=== PATIENT | female | born 1970 | race Caucasian/White ===

== ENCOUNTER 2016-08-12 10:30 | Emergency (ER) | payer MEDICARE, MEDICAID ==
[2016-08-12 10:37] VITALS: BP 121/87
[2016-08-12] MEDS ORDERED: Cephalexin 500 MG Cap PO ONE (11:01)
[2016-08-12] MEDS ORDERED: Acetaminophen/HYDROcodone 325-5 MG Tab PO ONE (11:01)
[2016-08-12] MEDS ORDERED: Doxycycline 100 MG Cap PO ONE (11:08)
--- NOTE | 2016-08-12 11:09 | EDM.PDOC ---
ED HPI Trauma - General Chief Complaint: Lower Extremity Injury/Pain Stated Complaint: INFECTED TOE Time Seen by Provider: 08/12/16 10:58 Source: Reports: Patient History Limitations: Reports: No limitations - History of Present Illness INITIAL COMMENTS - FREE TEXT/NARRATIVE: Patient is a 46-year-old female who presents to the ED complaining of pain to the right great toe. States she has an ingrown toenail and has an appointment with car pilot at 2:30 this afternoon. States she's taken ibuprofen and Toradol with no relief. She's been walking with increased pain noted. Denies chronic infections to her toenail. She has not been on antibiotics recently. Pain is moderate to severe with weightbearing. Allergies/ADRs: Allergies Sulfa (Sulfonamide Antibiotics) Allergy (Verified 08/12/16 10:37) Rash Home Medications: Ambulatory Orders FLUoxetine [PROzac] 20 mg PO DAILY 02/21/15 [Confirmed 08/12/16] QUEtiapine [SEROquel XR] 300 mg PO BEDTIME 02/21/15 [Confirmed 08/12/16] ALPRAZolam [Xanax] 1 mg PO DAILY PRN 08/12/16 [Confirmed 08/12/16] Doxycycline [Vibramycin] 100 mg PO Q12HR #20 cap 08/12/16 cloNIDine [Catapres] 0.1 mg PO TID 08/12/16 [Confirmed 08/12/16] Social & Family History - Tobacco Use Smoking Status *Q: Current Every Day Smoker Years of Tobacco use: 17 Packs/Tins Daily: 0.5 Second Hand Smoke Exposure: No - Recreational Drug Use Recreational Drug Use: No Review of Systems - Review of Systems Review Of Systems: See Below Constitutional: Denies: chills, fever Musculoskeletal: Reports: other (Right great toe pain) Skin: Reports: erythema (Right great toe) Neurological: Reports: Difficulty Walking (Secondary to right great toe pain) Trauma Exam - Physical Exam Exam: See Below Exam Limited By: No limitations General Appearance: Reports: alert, WD/WN, no apparent distress Ears: Reports: hearing grossly normal Nose: Reports: normal inspection Throat/Mouth: Reports: Normal voice, No airway compromise Neck: Reports: other (supple) Respiratory Exam: Reports: no respiratory distress, no accessory muscle use Cardiovascular: Reports: normal peripheral pulses, regular rate, rhythm, no edema Extremities: Reports: other (right great toe has infected ingrown nail to the medial aspect. mild redness and swelling present. no increased warmth noted. localized. ) Neurologic: Reports: no motor/sensory deficits, alert, normal mood/affect, oriented x 3 Skin: Reports: Normal color, Warm/dry Course - Vital Signs Last Recorded V/S: Last Vital Signs Temp 97.5 F 08/12/16 10:35 Pulse 72 08/12/16 10:35 Resp 18 08/12/16 10:35 BP 121/87 08/12/16 10:35 Pulse Ox 97 08/12/16 10:35 - Orders/Labs/Meds Orders: Active Orders 24 hr Category Date Time Status DME for Discharge [COMM] Stat Oth 08/12/16 11:06 Ordered Meds: Medications Discontinued Medications Generic Name Dose Route Start Last Admin Trade Name Freq PRN Reason Stop Dose Admin Hydrocodone Bitart/Acetaminophen 1 tab 08/12/16 11:01 08/12/16 11:13 [place] 325-5 Mg PO 08/12/16 11:02 1 tab ONETIME ONE Administration Cephalexin 500 mg 08/12/16 11:01 Keflex PO 08/12/16 11:02 ONETIME ONE Doxycycline Hyclate 100 mg 08/12/16 11:08 08/12/16 11:13 Vibramycin PO 08/12/16 11:09 100 mg ONETIME ONE Administration - Re-Assessments/Exams Free Text/Narrative Re-Assessment/Exam: Examination elicited infected right great toe 2nd to ingrown nail. Has appointment with car pilot today at 1430. Patient is here for pain therapy. Ordered [place] 5/325 one tab by mouth and doxycycline 100 mg times one by mouth. She requests crutches so that she can be nonweightbearing secondary to pain. Discharge instructions as documented. 08/12/16 11:03 08/12/16 18:39 Spoke with the patient. She prescription was not transmitted to [facility] upon discharge in error. This has been completed. Departure - Departure Time of Disposition: 11:05 Disposition: Home, Self-Care 01 Condition: good Clinical Impression: Ingrowing toenail with infection Prescriptions: Doxycycline [Vibramycin] 100 mg PO Q12HR #20 cap Instructions: Ingrown Toenail Referrals: PCP,Not In Area [Primary Care Provider] - Forms: ED Department Discharge Additional Instructions: Keep appointment with car pilot as scheduled for today. You were administered a narcotic pain medication while in the ED. No driving today is required. Utilize crutches as instructed. Elevate affected extremity to reduce swelling and pain. Utilize Tylenol and ibuprofen in alternating fashion for pain. Take doxycycline 100 mg twice a day for 10 days. Return as needed for worsening symptoms. Discuss with car pilot for further pain therapies. - My Orders Last 24 Hours: My Active Orders 08/12/16 11:06 DME for Discharge [COMM] Stat - Assessment/Plan Last 24 Hours: My Active Orders 08/12/16 11:06 DME for Discharge [COMM] Stat
== END 2016-08-12 11:30 | disposition home or self-care (01) ==
LOC: JD.ED 10:30
DX: L60.0 Ingrowing nail (principal); F17.210 Nicotine dependence, cigarettes, uncomplicated; Z88.2 Allergy status to sulfonamides; Z79.899 Other long term (current) drug therapy
CPT/HCPCS: 99283; A9270

== ENCOUNTER 2016-09-02 19:38 | Emergency (ER) | payer MEDICARE, MEDICAID ==
[2016-09-02] MEDS ORDERED: Sodium Chloride 0.9% 10 ML Syringe FLUSH PRN (19:56)
[2016-09-02] MEDS ORDERED: Sodium Chloride 0.9% 1,000 ML IV SCH (20:00)
--- NOTE | 2016-09-02 20:23 | EDM.PDOC ---
ED HPI GENERAL MEDICAL PROBLEM - General Chief Complaint: Behavioral/Psych Stated Complaint: [facility] Time Seen by Provider: 09/02/16 19:44 Source of Information: Reports: Patient History Limitations: Reports: No Limitations - History of Present Illness INITIAL COMMENTS - FREE TEXT/NARRATIVE: The patient presents by ambulance for suicidal ideation. She has a history of substance and drug addiction. She mostly abused prescription pain meds in the past. She had some trouble with prescription meds again a few months ago and she came to [place] to live with her daughter and get away from it. Her daughter does not drink an she is helping her with her medications. The patient has been seeing a counselor [facility] at [facility]. The patient has been feeling more depressed lately and drank 1/2 liter of vodka today. She wants to be and for life to end. She does not have a plan. She used to be a cutter. Her mother and father both of drug overdoses at a young age of 46 and 52. She denies using any street drugs. The patient did call [facility]'s crisis line. Onset: Gradual Duration: Day(s): Severity: Severe Improves with: Reports: None Worsens with: Reports: None Associated Symptoms: Reports: No Other Symptoms Treatments CORRECTIONAL CAPTAIN: Reports: Other (see below) Other Treatments CORRECTIONAL CAPTAIN: See triage note Lower Back Pain Score (Numeric/FACES): 7 - Related Data Allergies Allergy/AdvReac Type Severity Reaction Status Date / Time Sulfa (Sulfonamide Allergy Rash Verified 08/12/16 10:37 Antibiotics) sulfamethoxazole Allergy Hives Verified 09/02/16 19:47 [From Bactrim] trimethoprim [From Bactrim] Allergy Hives Verified 09/02/16 19:47 Home Meds: Home Meds FLUoxetine [PROzac] 60 mg PO DAILY 02/21/15 [History] QUEtiapine [SEROquel XR] 300 mg PO BEDTIME 02/21/15 [History] cloNIDine [Catapres] 0.1 mg PO TID 08/12/16 [History] ClonazePAM [KlonoPIN] 1 mg PO TID 09/02/16 [History] Past Medical History - Past Health History Medical/Surgical History: Denies Medical/Surgical History Cardiovascular History: Reports: Hypertension Musculoskeletal History: Reports: Back Pain, Chronic Psychiatric History: Reports: Anxiety, Depression, Suicide Attempt, Suicidal Ideation - Past Surgical History GI Surgical History: Reports: Cholecystectomy Female Surgical History: Reports: Hysterectomy Social & Family History - Family History Family Medical History: Noncontributory - Tobacco Use Smoking Status *Q: Unknown Ever Smoked Years of Tobacco use: 17 Packs/Tins Daily: 0.5 Second Hand Smoke Exposure: No - Caffeine Use Caffeine Use: Reports: None - Alcohol Use Number of Drinks Per Day: 10 - Recreational Drug Use Recreational Drug Use: Yes Recreational Drug Type: Reports: Benzodiazepines, Xanax ED ROS GENERAL - Review of Systems Review Of Systems: See Below Constitutional: Reports: No Symptoms HEENT: Reports: No Symptoms Respiratory: Reports: No Symptoms Cardiovascular: Reports: No Symptoms Endocrine: Reports: No Symptoms GI/Abdominal: Reports: No Symptoms : Reports: No Symptoms Musculoskeletal: Reports: No Symptoms Skin: Reports: No Symptoms Neurological: Reports: No Symptoms Psychiatric: Reports: Depression, Suicidal Ideation ED EXAM, BEHAVIORAL HEALTH - Physical Exam Exam: See Below Exam Limited By: Intoxication General Appearance: Alert, Other (Tearfull) Ears: Normal External Exam Nose: Normal Inspection Head: Atraumatic, Normocephalic Neck: Normal Inspection Respiratory/Chest: No Respiratory Distress, Lungs Clear, Normal Breath Sounds Cardiovascular: Regular Rate, Rhythm, No Edema, No Murmur GI/Abdominal: Soft, Non-Tender, No Organomegaly, No Mass Back Exam: Normal Inspection Extremities: Normal Inspection Neurological: Alert, No Motor/Sensory Deficits, Oriented x 3 COURSE, BEHAVIORAL HEALTH COMP - Course Vital Signs: Last Vital Signs Temp 97.6 F 09/02/16 19:42 Pulse 77 09/02/16 19:42 Resp 16 09/02/16 19:42 BP 116/84 09/02/16 19:42 Pulse Ox 93 L 09/02/16 19:42 Orders, Labs, Meds: Active Orders 24 hr Category Date Time Status Cardiac Monitoring [RC] . DIRECTED Care 09/02/16 19:56 Active Peripheral IV Care [RC] . DIRECTED Care 09/02/16 19:57 Active Sodium Chloride 0.9% [Normal Saline] 1,000 ml Med 09/02/16 20:00 Active IV .BOLUS Sodium Chloride 0.9% [Saline Flush] Med 09/02/16 19:56 Active 10 ml FLUSH ASDIRECTED PRN Peripheral IV Insertion Adult [OM.PC] Stat Oth 09/02/16 19:56 Ordered Medication Orders Sodium Chloride (Normal Saline) 1,000 mls @ 1,000 mls/hr IV .BOLUS ATUL Last Admin: 09/02/16 20:21 Dose: 1,000 mls/hr Sodium Chloride (Saline Flush) 10 ml FLUSH ASDIRECTED PRN PRN Reason: Keep Vein Open Last Admin: 09/02/16 20:22 Dose: 10 ml Laboratory Tests 09/02/16 09/02/16 09/02/16 Range/Units 20:18 20:18 20:18 WBC 8.50 (3.98-10.04) K/mm3 RBC 3.97 L (3.98-5.22) M/mm3 Hgb 12.6 (11.2-15.7) gm/L Hct 38.1 (34.1-44.9) % MCV 96.0 H (79.4-94.8) fl MCH 31.7 (25.6-32.2) pg MCHC 33.1 (32.2-35.5) g/dl RDW Std Deviation 50.3 H (36.4-46.3) fL Plt Count 353 (182-369) K/mm3 MPV 10.4 (9.4-12.3) fl Neut % (Auto) 43.9 (34.0-71.1) % Lymph % (Auto) 43.3 (19.3-51.7) % Ware % (Auto) 8.6 (4.7-12.5) % Eos % (Auto) 3.4 (0.7-5.8) Baso % (Auto) 0.6 (0.1-1.2) % Neut # (Auto) 3.73 (1.56-6.13) K/mm3 Lymph # (Auto) 3.68 (1.18-3.74) K/mm3 Ware # (Auto) 0.73 H (0.24-0.36) K/mm3 Eos # (Auto) 0.29 (0.04-0.36) K/mm3 Baso # (Auto) 0.05 (0.01-0.08) K/mm3 Sodium 144 (136-145) mEq/L Potassium 3.7 (3.5-5.1) mEq/L Chloride 108 H (98-107) mEq/L Carbon Dioxide 23 (21-32) mEq/L Anion Gap 16.7 H (5-15) BUN 24 H (7-18) mg/dL Creatinine 0.9 (0.55-1.02) mg/dL Est Cr Clr Drug Dosing TNP Estimated GFR (MDRD) > 60 (>60) mL/min BUN/Creatinine Ratio 26.7 H (14-18) Glucose 95 (74-106) mg/dL Calcium 8.7 (8.5-10.1) mg/dL Total Bilirubin 0.2 (0.2-1.0) mg/dL AST 22 (15-37) U/L ALT 31 (14-59) U/L Alkaline Phosphatase 56 (46-116) U/L Total Protein 6.7 (6.4-8.2) g/dl Albumin 3.4 (3.4-5.0) g/dl Globulin 3.3 gm/dL Albumin/Globulin Ratio 1.0 (1-2) HCG, Qual Negative (NEGATIVE) Salicylates (2.8-20) mg/dL Urine Opiates Screen (NEGATIVE) Ur Buprenorphine Scrn (NEGATIVE) Ur Oxycodone Screen (NEGATIVE) Urine Methadone Screen (NEGATIVE) Ur Propoxyphene Screen (NEGATIVE) Acetaminophen 0 L (10-30) ug/mL Ur Barbiturates Screen (NEGATIVE) Ur Tricyclics Screen (NEGATIVE) Ur Phencyclidine Scrn (NEGATIVE) Ur Amphetamine Screen (NEGATIVE) U Methamphetamines Scrn (NEGATIVE) U Benzodiazepines Scrn (NEGATIVE) U Cocaine Metab Screen (NEGATIVE) U Marijuana (THC) Screen (NEGATIVE) Ethyl Alcohol 0.17 (0.00) gm% 09/02/16 09/02/16 Range/Units 20:18 20:23 WBC (3.98-10.04) K/mm3 RBC (3.98-5.22) M/mm3 Hgb (11.2-15.7) gm/L Hct (34.1-44.9) % MCV (79.4-94.8) fl MCH (25.6-32.2) pg MCHC (32.2-35.5) g/dl RDW Std Deviation (36.4-46.3) fL Plt Count (182-369) K/mm3 MPV (9.4-12.3) fl Neut % (Auto) (34.0-71.1) % Lymph % (Auto) (19.3-51.7) % Ware % (Auto) (4.7-12.5) % Eos % (Auto) (0.7-5.8) Baso % (Auto) (0.1-1.2) % Neut # (Auto) (1.56-6.13) K/mm3 Lymph # (Auto) (1.18-3.74) K/mm3 Ware # (Auto) (0.24-0.36) K/mm3 Eos # (Auto) (0.04-0.36) K/mm3 Baso # (Auto) (0.01-0.08) K/mm3 Sodium (136-145) mEq/L Potassium (3.5-5.1) mEq/L Chloride (98-107) mEq/L Carbon Dioxide (21-32) mEq/L Anion Gap (5-15) BUN (7-18) mg/dL Creatinine (0.55-1.02) mg/dL Est Cr Clr Drug Dosing Estimated GFR (MDRD) (>60) mL/min BUN/Creatinine Ratio (14-18) Glucose (74-106) mg/dL Calcium (8.5-10.1) mg/dL Total Bilirubin (0.2-1.0) mg/dL AST (15-37) U/L ALT (14-59) U/L Alkaline Phosphatase (46-116) U/L Total Protein (6.4-8.2) g/dl Albumin (3.4-5.0) g/dl Globulin gm/dL Albumin/Globulin Ratio (1-2) HCG, Qual (NEGATIVE) Salicylates 5.4 (2.8-20) mg/dL Urine Opiates Screen Negative (NEGATIVE) Ur Buprenorphine Scrn Negative (NEGATIVE) Ur Oxycodone Screen Negative (NEGATIVE) Urine Methadone Screen Negative (NEGATIVE) Ur Propoxyphene Screen Negative (NEGATIVE) Acetaminophen (10-30) ug/mL Ur Barbiturates Screen Negative (NEGATIVE) Ur Tricyclics Screen Presumptive positive H (NEGATIVE) Ur Phencyclidine Scrn Negative (NEGATIVE) Ur Amphetamine Screen Negative (NEGATIVE) U Methamphetamines Scrn Negative (NEGATIVE) U Benzodiazepines Scrn Negative (NEGATIVE) U Cocaine Metab Screen Negative (NEGATIVE) U Marijuana (THC) Screen Negative (NEGATIVE) Ethyl Alcohol (0.00) gm% Medications Generic Name Dose Route Start Last Admin Trade Name Freq PRN Reason Stop Dose Admin Sodium Chloride 1,000 mls @ 1,000 mls/hr 09/02/16 20:00 09/02/16 20:21 Normal Saline IV 1,000 mls/hr .BOLUS ATUL Administration Sodium Chloride 10 ml 09/02/16 19:56 09/02/16 20:22 Saline Flush FLUSH 10 ml ASDIRECTED PRN Administration Keep Vein Open Discontinued Medications Generic Name Dose Route Start Last Admin Trade Name Freq PRN Reason Stop Dose Admin Clonazepam 1 mg 09/02/16 21:00 09/02/16 21:06 Klonopin PO 09/02/16 21:01 1 mg ONETIME ONE Administration Lorazepam 1 mg 09/03/16 03:31 09/03/16 03:35 Ativan PO 09/03/16 03:32 1 mg ONETIME ONE Administration Quetiapine Fumarate 300 mg 09/02/16 22:23 09/02/16 22:28 Seroquel PO 09/02/16 22:24 300 mg ONETIME ONE Administration Re-Assessment/Re-Exam: I ordered an IV NS 1L bolus, labs and UDS. Her CBC and CMP look good. Her HCG is negative. Her UDS is positive for tricyclics. Her ETOH is 0.17. I called [facility] and they will come in the morning after she is off the alcohol. She is requesting some lorazepam and seraquel. Those are both prescribed for her. 0645. She is sober now and not suicidal. She is sad and would like help with her drinking and drug. I called [facility] and they will come see her. I will give her a dose of ativan here. Departure - Departure Time of Disposition: 06:55 Disposition: Home, Self-Care 01 Condition: good Clinical Impression: Depressive disorder, Alcohol abuse, Suicidal ideation Alcohol intoxication Qualifiers: Complication of substance-induced condition: uncomplicated Qualified Code(s): F10.920 - Alcohol use, unspecified with intoxication, uncomplicated - Discharge Information Referrals: Leta Hernandez, HOT STAMP OPERATOR [Primary Care Provider] - 1 Week Forms: ED Department Discharge Additional Instructions: Take your medication as prescribed. Follow up with [facility]. Please return if you are worse. - My Orders Last 24 Hours: My Active Orders 09/02/16 19:56 Cardiac Monitoring [RC] . DIRECTED Sodium Chloride 0.9% [Saline Flush] 10 ml FLUSH ASDIRECTED PRN Peripheral IV Insertion Adult [OM.PC] Stat 09/02/16 19:57 Peripheral IV Care [RC] . DIRECTED 09/02/16 20:00 Sodium Chloride 0.9% [Normal Saline] 1,000 ml IV .BOLUS - Assessment/Plan Last 24 Hours: My Active Orders 09/02/16 19:56 Cardiac Monitoring [RC] . DIRECTED Sodium Chloride 0.9% [Saline Flush] 10 ml FLUSH ASDIRECTED PRN Peripheral IV Insertion Adult [OM.PC] Stat 09/02/16 19:57 Peripheral IV Care [RC] . DIRECTED 09/02/16 20:00 Sodium Chloride 0.9% [Normal Saline] 1,000 ml IV .BOLUS
[2016-09-02 20:54] LABS: ACETAMINOPHEN 0 ug/mL (10-30)
[2016-09-02] MEDS ORDERED: ClonazePAM 1 MG Tab PO ONE (21:00)
[2016-09-02] MEDS ORDERED: QUEtiapine 100 MG Tab PO ONE (22:23)
[2016-09-03] MEDS ORDERED: LORazepam 1 MG Tab PO ONE ×2 (03:31→06:56)
[2016-09-03 09:13] VITALS: BP 122/80
== END 2016-09-03 08:36 | disposition home or self-care (01) ==
LOC: JD.ED 19:38
DX: F32.9 Major depressive disorder, single episode, unspecified (principal); F10.920 Alcohol use, unspecified with intoxication, uncomplicated; R45.851 Suicidal ideations; I10 Essential (primary) hypertension; F41.9 Anxiety disorder, unspecified; Z88.8 Allergy status to other drugs, medicaments and biological substances; Z88.2 Allergy status to sulfonamides; Z79.899 Other long term (current) drug therapy; Z90.49 Acquired absence of other specified parts of digestive tract; Z90.710 Acquired absence of both cervix and uterus
CPT/HCPCS: 36415; 80053; 80306; 84703; 85025; 96360; 96361; 99285; A9270; G0480; J7040; J7050; 99284

== ENCOUNTER 2016-09-08 16:43 | Emergency (ER) | payer MEDICARE, MEDICAID ==
--- NOTE | 2016-09-08 17:36 | EDM.PDOC ---
ED HPI GENERAL MEDICAL PROBLEM - General Chief Complaint: Drug or Alcohol Abuse Stated Complaint: Alcohol abuse Time Seen by Provider: 09/08/16 17:05 Source of Information: Reports: Patient, RN Notes Reviewed History Limitations: Reports: No Limitations - History of Present Illness INITIAL COMMENTS - FREE TEXT/NARRATIVE: 46 year old female presents to the ED for help with alcohol abuse and anxiety. She has a history of alcohol abuse. She had stopped drinking back in September of 2013 but had her first drink again on 08/22/16. She has drank intermittently since August 22. She has been drinking for the past 3 days but was sober for 6 days prior to that. She reports drinking 4-5 shots of vodka today. She denies history of alcohol withdrawal or seizures. She denies history or problems with tremors. She had an argument with her daughter today regarding her alcohol use. This prompted her to come to the ED due to anxiety. She takes clonazepam TID which her daughter administers to her due to her history of substance abuse. She had a substance abuse eval at [facility] 3 days ago and is on the waiting list for day treatment. She recognizes that she needs help and is very eager to begin day treatment. We discussed the crisis bed but she would prefer to go home. She says her daughter is very upset with her and likely will not give be willing to give her scheduled clonazepam tonight. She reports a history of opioid addiction and went through treatment in April of this year. She has been sober from opiates since treatment and is doing well in that aspect. Middle Back Pain Score (Numeric/FACES): 8 - Related Data Allergies Allergy/AdvReac Type Severity Reaction Status Date / Time Sulfa (Sulfonamide Allergy Rash Verified 09/08/16 17:02 Antibiotics) sulfamethoxazole Allergy Hives Verified 09/08/16 17:02 [From Bactrim] trimethoprim [From Bactrim] Allergy Hives Verified 09/08/16 17:02 Home Meds: Home Meds FLUoxetine [PROzac] 60 mg PO DAILY 02/21/15 [History] QUEtiapine [SEROquel XR] 300 mg PO BEDTIME 02/21/15 [History] cloNIDine [Catapres] 0.1 mg PO TID 08/12/16 [History] ClonazePAM [KlonoPIN] 1 mg PO TID 09/02/16 [History] Past Medical History - Past Health History Medical/Surgical History: Denies Medical/Surgical History Cardiovascular History: Reports: Hypertension Musculoskeletal History: Reports: Back Pain, Chronic, Other (See Below) Other Musculoskeletal History: degenerative disc disease Psychiatric History: Reports: Addiction, Anxiety, Depression, Suicide Attempt, Suicidal Ideation, Other (See Below) Other Psychiatric History: Opoid addiction in the past - Past Surgical History GI Surgical History: Reports: Cholecystectomy Female Surgical History: Reports: Hysterectomy Social & Family History - Family History Family Medical History: Noncontributory - Tobacco Use Smoking Status *Q: Never Smoker Years of Tobacco use: 17 Packs/Tins Daily: 0.5 Second Hand Smoke Exposure: No - Caffeine Use Caffeine Use: Reports: None - Alcohol Use Days Per Week of Alcohol Use: 3 Number of Drinks Per Day: 4 Total Drinks Per Week: 12 Date of Last Drink: 09/08/16 Time of Last Drink: 14:00 - Recreational Drug Use Recreational Drug Use: Yes Drug Use in Last 12 Months: No Recreational Drug Type: Reports: Oxycodone Other Recreational Drug Type: not used since 2013 Recreational Drug Use Frequency: Not Used In Over 6 Months ED ROS GENERAL - Review of Systems Review Of Systems: See Below Constitutional: Reports: No Symptoms. Denies: Fever, Chills, Diaphoresis Respiratory: Reports: No Symptoms. Denies: Shortness of Breath Cardiovascular: Reports: No Symptoms. Denies: Chest Pain GI/Abdominal: Reports: No Symptoms. Denies: Abdominal Pain, Nausea, Vomiting Neurological: Reports: Headache. Denies: Confusion, Dizziness, Seizure, Tremors , Trouble Speaking, Difficulty Walking Psychiatric: Reports: Anxiety, Cravings ED EXAM, BEHAVIORAL HEALTH - Physical Exam Exam: See Below Exam Limited By: No Limitations General Appearance: Alert, WD/WN, No Apparent Distress, Other (smells of ETOH) Eye Exam: Bilateral Eye: Normal Inspection, PERRL Respiratory/Chest: No Respiratory Distress, Lungs Clear, Normal Breath Sounds Cardiovascular: Regular Rate, Rhythm GI/Abdominal: Normal Bowel Sounds, Soft, Non-Tender, Other (Drinking PO fluids with no nauesa or vomiting) Neurological: Alert, Normal Cognition, Normal Gait, Oriented x 3 Psychiatric: Alert, Normal Affect, Normal Cognition, Oriented, Tearful, Other ( anxious, articulates well, cooperative and openly discusses her symptoms and history. She is alert and does not appear overly intoxicated. ) COURSE, BEHAVIORAL HEALTH COMP - Course Vital Signs: Last Vital Signs Temp 98.7 F 09/08/16 16:55 Pulse 79 09/08/16 16:55 Resp 22 H 09/08/16 16:55 BP Pulse Ox 95 09/08/16 16:55 Orders, Labs, Meds: Active Orders 24 hr Category Date Time Status ClonazePAM [KlonoPIN] Med 09/08/16 17:40 Once 1 mg PO ONETIME ONE Re-Assessment/Re-Exam: The patient has a normal neuro exam and ambulates with a steady gate. She smells of ETOH but does not appear acutely intoxicated. She is very low risk for alcohol withdrawal and has clonazepam at home. I called and spoke to Willa from [facility]. She recommended that we give the patient the number to the crisis line to get her by over the weekend and hopefully they can get her in to day treatment on Monday. The patient was offered the crisis bed but declined. She will be given 1 dose of clonzepam as she is worried her daughter will refuse to administer her evening clonazepam. The patient will be discharged home. Will call her a cab. Departure - Departure Time of Disposition: 17:33 Disposition: Home, Self-Care 01 Condition: good Clinical Impression: Alcohol abuse - Discharge Information Referrals: Leta Hernandez, TAIL END RIDER [Primary Care Provider] - Additional Instructions: Continue your clonazepam as prescribed Try to refrain from alcohol use Return to ER with worsening of symptoms or if you develop signs of alcohol withdrawal (Shakiness, sweating, or loss of appetite, agitation, restlessness, or irritability, nausea or vomiting, palpitations, racing heart, disorientation , headache, insomnia, nervousness, or seizures) If you have any concerns or problems with anxiety over the weekend, call the [facility] Crisis line at [phone] or return to the ER. - My Orders Last 24 Hours: My Active Orders 09/08/16 17:40 ClonazePAM [KlonoPIN] 1 mg PO ONETIME ONE - Assessment/Plan Last 24 Hours: My Active Orders 09/08/16 17:40 ClonazePAM [KlonoPIN] 1 mg PO ONETIME ONE
[2016-09-08] MEDS ORDERED: ClonazePAM 1 MG Tab PO ONE (17:40)
== END 2016-09-08 18:02 | disposition home or self-care (01) ==
LOC: JD.ED 16:43
DX: F10.10 Alcohol abuse, uncomplicated (principal); I10 Essential (primary) hypertension; F32.9 Major depressive disorder, single episode, unspecified; Z90.49 Acquired absence of other specified parts of digestive tract; Z90.710 Acquired absence of both cervix and uterus; Z79.899 Other long term (current) drug therapy; Z88.2 Allergy status to sulfonamides; Z88.1 Allergy status to other antibiotic agents
CPT/HCPCS: 99284; A9270; 99283

== ENCOUNTER 2016-09-22 10:51 | Emergency (ER) | payer MEDICARE, MEDICAID ==
[2016-09-22 11:12] VITALS: BP 134/94
[2016-09-22] MEDS ORDERED: cloNIDine 0.1 MG Tab PO ONE (11:50)
[2016-09-22] MEDS ORDERED: ClonazePAM 1 MG Tab PO ONE (11:50)
--- NOTE | 2016-09-22 11:51 | EDM.PDOC ---
ED HPI GENERAL MEDICAL PROBLEM - General Chief Complaint: Drug or Alcohol Abuse Stated Complaint: Medical clearance Time Seen by Provider: 09/22/16 11:40 Source of Information: Reports: Patient, RN Notes Reviewed History Limitations: Reports: No Limitations - History of Present Illness INITIAL COMMENTS - FREE TEXT/NARRATIVE: 46 year old female presents to the ED for medical clearance evaluation. She is being admitted to inpatient alcohol treatment at [facility]. She has been drinking intermittently since August 22. Her last drink was two shots of vodka around 7am this morning. She denies any history of alcohol withdrawal or seizures. She has anxiety and takes fluoxetine, clonazepam, and clonidine. She normally takes her doses at 9am but couldn't find the medication. Her daughter dispenses her medications for her since she has a history of opiate abuse. She dispenses them into separate baggies and the patient says she misplaced the baggy. The patient denies any recent illness or concerns. No chest pain, shortness of breath, abdominal pain, vomiting, diarrhea, fever, dysuria. She does report some mild nausea. - Related Data Allergies Allergy/AdvReac Type Severity Reaction Status Date / Time Sulfa (Sulfonamide Allergy Rash Verified 09/08/16 17:02 Antibiotics) sulfamethoxazole Allergy Hives Verified 09/08/16 17:02 [From Bactrim] trimethoprim [From Bactrim] Allergy Hives Verified 09/08/16 17:02 Home Meds: Home Meds FLUoxetine [PROzac] 60 mg PO DAILY 02/21/15 [History] QUEtiapine [SEROquel XR] 300 mg PO BEDTIME 02/21/15 [History] cloNIDine [Catapres] 0.1 mg PO TID 08/12/16 [History] ClonazePAM [KlonoPIN] 1 mg PO TID 09/02/16 [History] Past Medical History - Past Health History Medical/Surgical History: Denies Medical/Surgical History Cardiovascular History: Reports: Hypertension Musculoskeletal History: Reports: Back Pain, Chronic, Other (See Below) Other Musculoskeletal History: degenerative disc disease Psychiatric History: Reports: Addiction, Anxiety, Depression, Suicide Attempt, Suicidal Ideation, Other (See Below) Other Psychiatric History: Opoid addiction in the past - Past Surgical History GI Surgical History: Reports: Cholecystectomy Female Surgical History: Reports: Hysterectomy Social & Family History - Family History Family Medical History: Noncontributory - Tobacco Use Smoking Status *Q: Never Smoker Years of Tobacco use: 17 Packs/Tins Daily: 0.5 Second Hand Smoke Exposure: No - Caffeine Use Caffeine Use: Reports: None - Alcohol Use Days Per Week of Alcohol Use: 3 Number of Drinks Per Day: 4 Total Drinks Per Week: 12 - Recreational Drug Use Recreational Drug Use: Yes Drug Use in Last 12 Months: No Recreational Drug Type: Reports: Oxycodone Other Recreational Drug Type: not used since 2013 Recreational Drug Use Frequency: Not Used In Over 6 Months ED ROS GENERAL - Review of Systems Review Of Systems: See Below Constitutional: Reports: No Symptoms. Denies: Fever, Chills Respiratory: Reports: No Symptoms. Denies: Shortness of Breath Cardiovascular: Reports: No Symptoms. Denies: Chest Pain GI/Abdominal: Reports: Nausea. Denies: Abdominal Pain, Vomiting : Reports: No Symptoms. Denies: Dysuria Psychiatric: Reports: Anxiety ED EXAM, BEHAVIORAL HEALTH - Physical Exam Exam: See Below Exam Limited By: No Limitations General Appearance: Alert, WD/WN, No Apparent Distress Eye Exam: Bilateral Eye: EOMI, PERRL Respiratory/Chest: No Respiratory Distress, Lungs Clear, Normal Breath Sounds Cardiovascular: Regular Rate, Rhythm GI/Abdominal: Normal Bowel Sounds, Soft, Non-Tender Neurological: Alert, Normal Mood/Affect, Normal Cognition, Normal Gait, No Motor /Sensory Deficits, Oriented x 3 Psychiatric: Alert, Normal Affect, Normal Cognition, Normal Mood, Oriented. No : Suicidal Plan, Suicidal Thoughts COURSE, BEHAVIORAL HEALTH COMP - Course Vital Signs: Last Vital Signs Temp 97.8 F 09/22/16 11:04 Pulse 82 09/22/16 11:04 Resp 20 09/22/16 11:04 BP 134/94 H 09/22/16 12:30 Pulse Ox 97 09/22/16 11:04 Orders, Labs, Meds: Laboratory Tests 09/22/16 09/22/16 09/22/16 Range/Units 12:00 12:20 12:20 WBC 6.09 (3.98-10.04) K/mm3 RBC 3.78 L (3.98-5.22) M/mm3 Hgb 12.2 (11.2-15.7) gm/L Hct 36.3 (34.1-44.9) % MCV 96.0 H (79.4-94.8) fl MCH 32.3 H (25.6-32.2) pg MCHC 33.6 (32.2-35.5) g/dl RDW Std Deviation 48.0 H (36.4-46.3) fL Plt Count 333 (182-369) K/mm3 MPV 9.9 (9.4-12.3) fl Neut % (Auto) 52.7 (34.0-71.1) % Lymph % (Auto) 33.3 (19.3-51.7) % Dunn % (Auto) 8.4 (4.7-12.5) % Eos % (Auto) 2.1 (0.7-5.8) Baso % (Auto) 2.5 H (0.1-1.2) % Neut # (Auto) 3.21 (1.56-6.13) K/mm3 Lymph # (Auto) 2.03 (1.18-3.74) K/mm3 Dunn # (Auto) 0.51 H (0.24-0.36) K/mm3 Eos # (Auto) 0.13 (0.04-0.36) K/mm3 Baso # (Auto) 0.15 H (0.01-0.08) K/mm3 Manual Slide Review Normal smear Sodium 142 (136-145) mEq/L Potassium 4.0 (3.5-5.1) mEq/L Chloride 106 (98-107) mEq/L Carbon Dioxide 24 (21-32) mEq/L Anion Gap 16.0 H (5-15) BUN 22 H (7-18) mg/dL Creatinine 1.0 (0.55-1.02) mg/dL Est Cr Clr Drug Dosing 64.41 mL/min Estimated GFR (MDRD) 59 (>60) mL/min BUN/Creatinine Ratio 22.0 H (14-18) Glucose 96 (74-106) mg/dL Calcium 8.4 L (8.5-10.1) mg/dL Total Bilirubin 0.2 (0.2-1.0) mg/dL AST 4 L (15-37) U/L ALT 22 (14-59) U/L Alkaline Phosphatase 75 (46-116) U/L Total Protein 6.9 (6.4-8.2) g/dl Albumin 3.3 L (3.4-5.0) g/dl Globulin 3.6 gm/dL Albumin/Globulin Ratio 0.9 L (1-2) Urine Opiates Screen Negative (NEGATIVE) Ur Buprenorphine Scrn Negative (NEGATIVE) Ur Oxycodone Screen Negative (NEGATIVE) Urine Methadone Screen Negative (NEGATIVE) Ur Propoxyphene Screen Negative (NEGATIVE) Ur Barbiturates Screen Negative (NEGATIVE) Ur Tricyclics Screen Negative (NEGATIVE) Ur Phencyclidine Scrn Negative (NEGATIVE) Ur Amphetamine Screen Negative (NEGATIVE) U Methamphetamines Scrn Negative (NEGATIVE) U Benzodiazepines Scrn Negative (NEGATIVE) U Cocaine Metab Screen Negative (NEGATIVE) U Marijuana (THC) Screen Negative (NEGATIVE) Ethyl Alcohol 0.05 (0.00) gm% Medications Discontinued Medications Generic Name Dose Route Start Last Admin Trade Name Freq PRN Reason Stop Dose Admin Clonazepam 1 mg 09/22/16 11:50 09/22/16 12:34 Klonopin PO 09/22/16 11:51 1 mg ONETIME ONE Administration Clonidine HCl 0.1 mg 09/22/16 11:50 09/22/16 12:30 Catapres PO 09/22/16 11:51 0.1 mg ONETIME ONE Administration Fluoxetine HCl 60 mg 09/22/16 12:45 09/22/16 12:44 Prozac PO 09/22/16 12:46 60 mg ONETIME ONE Administration Re-Assessment/Re-Exam: CBC is normal. CMP reveals mild volume depletion but is otherwise normal. The patient can hydrate orally as she has no vomiting or diarrhea. ETOH is 0.05 and drug screen is negative. Of note, her UDS did not test positive for benzos which she takes chronically. The patient is medically cleared. I spoke to Charlotte at [facility]. They have accepted the patient. They will come get her. I also called [facility] to verify the patient's current medications. Medication orders were written for [facility] according to the pharmacy's records. I also refilled her clonidine for two weeks supply. This was given per a verbal order to the Pharmacist at [facility]. Departure - Departure Time of Disposition: 13:53 Disposition: DC/Tfer to In Rehab Fac 62 Condition: fair Clinical Impression: Alcohol abuse - Discharge Information Instructions: Alcohol Use Disorder Referrals: Leta Hernandez [employer] [Primary Care Provider] - Additional Instructions: Go to [facility] Return to ER as needed Medications as prescribed
[2016-09-22] MEDS ORDERED: FLUoxetine 20 MG Cap PO ONE (12:45)
== END 2016-09-22 14:23 ==
LOC: JD.ED 10:51
DX: F10.10 Alcohol abuse, uncomplicated (principal); I10 Essential (primary) hypertension; F41.8 Other specified anxiety disorders; Z90.49 Acquired absence of other specified parts of digestive tract; Z90.710 Acquired absence of both cervix and uterus; Z88.1 Allergy status to other antibiotic agents; Z88.2 Allergy status to sulfonamides; Y90.0 Blood alcohol level of less than 20 mg/100 ml; Z79.899 Other long term (current) drug therapy
CPT/HCPCS: 36415; 80053; 80306; 85025; 99283; A9270; G0480

== ENCOUNTER 2016-10-04 07:34 | Emergency (ER) | payer MEDICARE, MEDICAID ==
[2016-10-04 07:52] VITALS: BP 154/97
[2016-10-04] MEDS ORDERED: Sodium Chloride 0.9% 10 ML Syringe FLUSH PRN (08:13)
[2016-10-04] MEDS ORDERED: Prochlorperazine 10 MG/2 ML SDV IVPUSH ONE (08:14)
[2016-10-04] MEDS ORDERED: diphenhydrAMINE 50 MG/ML SDV IVPUSH ONE (08:14)
[2016-10-04] MEDS ORDERED: Ketorolac 30 MG/ML SDV IVPUSH ONE (08:14)
--- NOTE | 2016-10-04 08:40 | EDM.PDOC ---
ED HPI GENERAL MEDICAL PROBLEM - General Chief Complaint: Headache Stated Complaint: MIGRAINE Time Seen by Provider: 10/04/16 07:55 Source of Information: Reports: Patient History Limitations: Reports: No Limitations - History of Present Illness INITIAL COMMENTS - FREE TEXT/NARRATIVE: The patient presents with a headache. She has a history of headaches. She is at the [facility]. She has nausea but no vomiting. She denies numbness or weakness. She has no fever or chills. She has no other complaints. She tried motrin but it did not help. Onset: Sudden Duration: Hour(s): (She woke up at 3am with it) Location: Reports: Head Quality: Reports: Ache Severity: Severe Improves with: Reports: None Worsens with: Reports: None Context: Reports: Other (She woke up with it at 3am) Associated Symptoms: Reports: Headaches, Nausea/Vomiting. Denies: Cough, Fever/ Chills, Shortness of Breath, Weakness Frontal Headache Pain Score (Numeric/FACES): 8 - Related Data Allergies Allergy/AdvReac Type Severity Reaction Status Date / Time Sulfa (Sulfonamide Allergy Rash Verified 10/04/16 07:53 Antibiotics) sulfamethoxazole Allergy Hives Verified 10/04/16 07:53 [From Bactrim] trimethoprim [From Bactrim] Allergy Hives Verified 10/04/16 07:53 Home Meds: Home Meds FLUoxetine [PROzac] 60 mg PO DAILY 02/21/15 [History] QUEtiapine [SEROquel XR] 300 mg PO BEDTIME 02/21/15 [History] cloNIDine [Catapres] 0.1 mg PO TID 08/12/16 [History] ClonazePAM [KlonoPIN] 1 mg PO TID 09/02/16 [History] Past Medical History - Past Health History Medical/Surgical History: Denies Medical/Surgical History Cardiovascular History: Reports: Hypertension Musculoskeletal History: Reports: Back Pain, Chronic, Other (See Below) Other Musculoskeletal History: degenerative disc disease Psychiatric History: Reports: Addiction, Anxiety, Depression, Suicide Attempt, Suicidal Ideation, Other (See Below) Other Psychiatric History: Opoid addiction in the past - Past Surgical History HEENT Surgical History: Reports: Tonsillectomy GI Surgical History: Reports: Cholecystectomy Female Surgical History: Reports: Hysterectomy Social & Family History - Family History Family Medical History: Noncontributory - Tobacco Use Smoking Status *Q: Current Every Day Smoker Years of Tobacco use: 21 Packs/Tins Daily: 1 Second Hand Smoke Exposure: No - Caffeine Use Caffeine Use: Reports: Coffee - Alcohol Use Days Per Week of Alcohol Use: 3 Number of Drinks Per Day: 4 Total Drinks Per Week: 12 - Recreational Drug Use Recreational Drug Use: No Drug Use in Last 12 Months: No Recreational Drug Type: Reports: Oxycodone Other Recreational Drug Type: not used since 2013 Recreational Drug Use Frequency: Not Used In Over 6 Months ED ROS GENERAL - Review of Systems Review Of Systems: See Below Constitutional: Reports: No Symptoms HEENT: Reports: No Symptoms Respiratory: Reports: No Symptoms Cardiovascular: Reports: No Symptoms Endocrine: Reports: No Symptoms GI/Abdominal: Reports: Nausea. Denies: Abdominal Pain, Vomiting : Reports: No Symptoms Musculoskeletal: Reports: No Symptoms Skin: Reports: No Symptoms Neurological: Reports: Headache - Physical Exam Exam: See Below Exam Limited By: No Limitations General Appearance: Alert, No Apparent Distress Ears: Normal External Exam Nose: Normal Inspection Head Exam: Atraumatic, Normocephalic Neck: Normal Inspection Respiratory/Chest: No Respiratory Distress, Lungs Clear, Normal Breath Sounds Cardiovascular: Regular Rate, Rhythm, No Edema, No Murmur GI/Abdominal: Soft, Non-Tender, No Organomegaly, No Mass Neuro Exam (Abbreviated): Alert, Oriented, No Motor/Sensory Deficits Course - Vital Signs Last Recorded V/S: Last Vital Signs Temp 98.2 F 10/04/16 07:49 Pulse 90 10/04/16 07:49 Resp 14 10/04/16 07:49 BP 154/97 H 10/04/16 07:49 Pulse Ox 94 L 10/04/16 07:49 - Orders/Labs/Meds Orders: Active Orders 24 hr Category Date Time Status Peripheral IV Care [RC] . DIRECTED Care 10/04/16 08:13 Active Sodium Chloride 0.9% [Saline Flush] Med 10/04/16 08:13 Active 10 ml FLUSH ASDIRECTED PRN Peripheral IV Insertion Adult [OM.PC] Routine Oth 10/04/16 08:13 Ordered Medication Orders Sodium Chloride (Saline Flush) 10 ml FLUSH ASDIRECTED PRN PRN Reason: Keep Vein Open Last Admin: 10/04/16 08:31 Dose: 10 ml Meds: Medications Generic Name Dose Route Start Last Admin Trade Name Modesta PRN Reason Stop Dose Admin Sodium Chloride 10 ml 10/04/16 08:13 10/04/16 08:31 Saline Flush FLUSH 10 ml ASDIRECTED PRN Administration Keep Vein Open Discontinued Medications Generic Name Dose Route Start Last Admin Trade Name Modesta PRN Reason Stop Dose Admin Diphenhydramine HCl 50 mg 10/04/16 08:14 10/04/16 08:26 Benadryl IVPUSH 10/04/16 08:15 50 mg ONETIME ONE Administration Ketorolac Tromethamine 30 mg 10/04/16 08:14 10/04/16 08:24 Toradol IVPUSH 10/04/16 08:15 30 mg ONETIME ONE Administration Prochlorperazine Edisylate 10 mg 10/04/16 08:14 10/04/16 08:29 Compazine IVPUSH 10/04/16 08:15 10 mg ONETIME ONE Administration - Re-Assessments/Exams Free Text/Narrative Re-Assessment/Exam: 10/04/16 08:39 I ordered an IV saline lock, compazine 10mg IV, toradol 30mg IV, and benadryl 50mg IV. 10/04/16 09:24 The patient feels better. I will discharge her home. Departure - Departure Time of Disposition: 09:25 Disposition: Home, Self-Care 01 Condition: good Clinical Impression: Migraine - Discharge Information Referrals: Leta Hernandez, [employer] [Primary Care Provider] - (As needed) Forms: ED Department Discharge Additional Instructions: Rest in a dark quit room. Follow up with your doctor as needed. Please return if you are worse. - My Orders Last 24 Hours: My Active Orders 10/04/16 08:13 Peripheral IV Care [RC] . DIRECTED Sodium Chloride 0.9% [Saline Flush] 10 ml FLUSH ASDIRECTED PRN Peripheral IV Insertion Adult [OM.PC] Routine - Assessment/Plan Last 24 Hours: My Active Orders 10/04/16 08:13 Peripheral IV Care [RC] . DIRECTED Sodium Chloride 0.9% [Saline Flush] 10 ml FLUSH ASDIRECTED PRN Peripheral IV Insertion Adult [OM.PC] Routine
== END 2016-10-04 09:44 | disposition home or self-care (01) ==
LOC: JD.ED 07:34
DX: G43.909 Migraine, unspecified, not intractable, without status migrainosus (principal); I10 Essential (primary) hypertension; F41.9 Anxiety disorder, unspecified; F32.9 Major depressive disorder, single episode, unspecified; F17.210 Nicotine dependence, cigarettes, uncomplicated; Z90.49 Acquired absence of other specified parts of digestive tract; Z98.890 Other specified postprocedural states; Z79.899 Other long term (current) drug therapy; Z88.1 Allergy status to other antibiotic agents; Z88.2 Allergy status to sulfonamides; Z90.710 Acquired absence of both cervix and uterus
CPT/HCPCS: 96374; 96375; 99283; J0780; J1200; J1885; J7050; 99284

== ENCOUNTER 2016-11-06 19:24 | Emergency (ER) | payer MEDICARE, MEDICAID ==
[2016-11-06 19:40] VITALS: BP 100/72
[2016-11-06] MEDS ORDERED: Sodium Chloride 0.9% 1,000 ML IV ONE (20:43)
[2016-11-06] MEDS ORDERED: Sodium Chloride 0.9% 10 ML Syringe FLUSH PRN (20:44)
[2016-11-06] MEDS ORDERED: Acetaminophen 325 MG Tab PO ONE (20:48)
[2016-11-06] MEDS ORDERED: QUEtiapine 25 MG Tab PO ONE (20:49)
[2016-11-06] MEDS ORDERED: traZODone 50 MG Tab PO ONE (20:49)
[2016-11-06] MEDS ORDERED: ClonazePAM 1 MG Tab PO ONE (20:51)
--- NOTE | 2016-11-06 21:04 | EDM.PDOC ---
ED HPI GENERAL MEDICAL PROBLEM - General Chief Complaint: Drug or Alcohol Abuse Stated Complaint: ALCOHOL Time Seen by Provider: 11/06/16 19:43 Source of Information: Reports: Patient, Police History Limitations: Reports: Intoxication - History of Present Illness INITIAL COMMENTS - FREE TEXT/NARRATIVE: The patient presents with anxiety and intoxication. The patient was just released from the [facility] on Monday. She was there for 5 weeks getting treatment for alcoholism. She had some changes to her medications. Her seroquel was reduced and her clonazepam was reduced to 0.5mg TID instead of 2mg TID. She got anxious today and drank. She says the drinking helps her. She does not have a specific trigger. Nothing happened to make her anxious. She has a family history of anxiety and for some family members it had a major affect on their life. She denies any pain. She is not depressed and she has no suicidal thoughts. Onset: Gradual Duration: Day(s): Improves with: Reports: None Worsens with: Reports: None Associated Symptoms: Reports: No Other Symptoms Headache Pain Score (Numeric/FACES): 6 - Related Data Allergies Allergy/AdvReac Type Severity Reaction Status Date / Time Sulfa (Sulfonamide Allergy Rash Verified 11/06/16 19:40 Antibiotics) sulfamethoxazole Allergy Hives Verified 11/06/16 19:40 [From Bactrim] trimethoprim [From Bactrim] Allergy Hives Verified 11/06/16 19:40 Home Meds: Home Meds FLUoxetine [PROzac] 60 mg PO DAILY 02/21/15 [History] QUEtiapine [SEROquel XR] 100 mg PO BEDTIME 02/21/15 [History] cloNIDine [Catapres] 0.1 mg PO BID 08/12/16 [History] ClonazePAM [KlonoPIN] 1 mg PO TID 09/02/16 [History] ClonazePAM [KlonoPIN] 2 mg PO BID #20 tablet 11/06/16 [Rx] Varenicline Tartrate [Chantix] 1 mg PO BID 11/06/16 [History] traZODone HCl [Trazodone HCl] 200 mg PO DAILY 11/06/16 [History] Past Medical History - Past Health History Medical/Surgical History: Denies Medical/Surgical History Cardiovascular History: Reports: Hypertension Musculoskeletal History: Reports: Back Pain, Chronic, Other (See Below) Other Musculoskeletal History: degenerative disc disease Psychiatric History: Reports: Addiction, Anxiety, Depression, Suicide Attempt, Suicidal Ideation, Other (See Below) Other Psychiatric History: Opoid addiction in the past - Past Surgical History HEENT Surgical History: Reports: Tonsillectomy GI Surgical History: Reports: Cholecystectomy Female Surgical History: Reports: Hysterectomy Social & Family History - Family History Family Medical History: Noncontributory - Tobacco Use Smoking Status *Q: Current Every Day Smoker Years of Tobacco use: 20 Packs/Tins Daily: 0.1 Second Hand Smoke Exposure: No - Caffeine Use Caffeine Use: Reports: Coffee - Alcohol Use Days Per Week of Alcohol Use: 3 Number of Drinks Per Day: 4 Total Drinks Per Week: 12 - Recreational Drug Use Recreational Drug Use: No Drug Use in Last 12 Months: No Recreational Drug Type: Reports: Oxycodone Other Recreational Drug Type: not used since 2013 Recreational Drug Use Frequency: Not Used In Over 6 Months ED ROS GENERAL - Review of Systems Review Of Systems: See Below Constitutional: Reports: No Symptoms HEENT: Reports: No Symptoms Respiratory: Reports: No Symptoms Cardiovascular: Reports: No Symptoms Endocrine: Reports: No Symptoms GI/Abdominal: Reports: No Symptoms : Reports: No Symptoms Musculoskeletal: Reports: No Symptoms Skin: Reports: No Symptoms ED EXAM, BEHAVIORAL HEALTH - Physical Exam Exam: See Below Exam Limited By: Intoxication General Appearance: Alert, No Apparent Distress Ears: Normal External Exam Nose: Normal Inspection Head: Atraumatic, Normocephalic Neck: Normal Inspection Respiratory/Chest: No Respiratory Distress, Lungs Clear, Normal Breath Sounds Cardiovascular: Regular Rate, Rhythm, No Edema, No Murmur GI/Abdominal: Soft, Non-Tender, No Organomegaly, No Mass Back Exam: Normal Inspection Extremities: Normal Inspection COURSE, BEHAVIORAL HEALTH COMP - Course Vital Signs: Last Vital Signs Temp 97.6 F 11/06/16 19:36 Pulse 88 11/06/16 19:36 Resp 16 11/06/16 19:36 BP 100/72 11/06/16 19:36 Pulse Ox 96 11/06/16 19:36 Orders, Labs, Meds: Active Orders 24 hr Category Date Time Status Cardiac Monitoring [RC] . DIRECTED Care 11/06/16 19:52 Active Peripheral IV Care [RC] . DIRECTED Care 11/06/16 20:44 Active Sodium Chloride 0.9% [Saline Flush] Med 11/06/16 20:44 Active 10 ml FLUSH ASDIRECTED PRN Medication Orders Sodium Chloride (Saline Flush) 10 ml FLUSH ASDIRECTED PRN PRN Reason: Keep Vein Open Laboratory Tests 11/06/16 11/06/16 11/06/16 Range/Units 20:15 20:15 20:15 WBC 6.56 (3.98-10.04) K/mm3 RBC 4.16 (3.98-5.22) M/mm3 Hgb 13.3 (11.2-15.7) gm/L Hct 39.3 (34.1-44.9) % MCV 94.5 (79.4-94.8) fl MCH 32.0 (25.6-32.2) pg MCHC 33.8 (32.2-35.5) g/dl RDW Std Deviation 43.2 (36.4-46.3) fL Plt Count 294 (182-369) K/mm3 MPV 9.6 (9.4-12.3) fl Neut % (Auto) 58.7 (34.0-71.1) % Lymph % (Auto) 30.9 (19.3-51.7) % Reagan % (Auto) 5.6 (4.7-12.5) % Eos % (Auto) 4.1 (0.7-5.8) Baso % (Auto) 0.5 (0.1-1.2) % Neut # (Auto) 3.85 (1.56-6.13) K/mm3 Lymph # (Auto) 2.03 (1.18-3.74) K/mm3 Reagan # (Auto) 0.37 H (0.24-0.36) K/mm3 Eos # (Auto) 0.27 (0.04-0.36) K/mm3 Baso # (Auto) 0.03 (0.01-0.08) K/mm3 Sodium 141 (136-145) mEq/L Potassium 3.8 (3.5-5.1) mEq/L Chloride 106 (98-107) mEq/L Carbon Dioxide 27 (21-32) mEq/L Anion Gap 11.8 (5-15) BUN 18 (7-18) mg/dL Creatinine 1.2 H (0.55-1.02) mg/dL Est Cr Clr Drug Dosing 53.67 mL/min Estimated GFR (MDRD) 48 (>60) mL/min BUN/Creatinine Ratio 15.0 (14-18) Glucose 103 (74-106) mg/dL Calcium 8.3 L (8.5-10.1) mg/dL Total Bilirubin 0.3 (0.2-1.0) mg/dL AST 93 H (15-37) U/L ALT 169 H (14-59) U/L Alkaline Phosphatase 65 (46-116) U/L Total Protein 6.9 (6.4-8.2) g/dl Albumin 3.4 (3.4-5.0) g/dl Globulin 3.5 gm/dL Albumin/Globulin Ratio 1.0 (1-2) TSH 3rd Generation 1.798 (0.358-3.74) uIU/mL HCG, Qual Negative (NEGATIVE) Urine Opiates Screen (NEGATIVE) Ur Buprenorphine Scrn (NEGATIVE) Ur Oxycodone Screen (NEGATIVE) Urine Methadone Screen (NEGATIVE) Ur Propoxyphene Screen (NEGATIVE) Ur Barbiturates Screen (NEGATIVE) Ur Tricyclics Screen (NEGATIVE) Ur Phencyclidine Scrn (NEGATIVE) Ur Amphetamine Screen (NEGATIVE) U Methamphetamines Scrn (NEGATIVE) U Benzodiazepines Scrn (NEGATIVE) U Cocaine Metab Screen (NEGATIVE) U Marijuana (THC) Screen (NEGATIVE) Ethyl Alcohol 0.16 (0.00) gm% 11/06/16 Range/Units 20:15 WBC (3.98-10.04) K/mm3 RBC (3.98-5.22) M/mm3 Hgb (11.2-15.7) gm/L Hct (34.1-44.9) % MCV (79.4-94.8) fl MCH (25.6-32.2) pg MCHC (32.2-35.5) g/dl RDW Std Deviation (36.4-46.3) fL Plt Count (182-369) K/mm3 MPV (9.4-12.3) fl Neut % (Auto) (34.0-71.1) % Lymph % (Auto) (19.3-51.7) % Reagan % (Auto) (4.7-12.5) % Eos % (Auto) (0.7-5.8) Baso % (Auto) (0.1-1.2) % Neut # (Auto) (1.56-6.13) K/mm3 Lymph # (Auto) (1.18-3.74) K/mm3 Reagan # (Auto) (0.24-0.36) K/mm3 Eos # (Auto) (0.04-0.36) K/mm3 Baso # (Auto) (0.01-0.08) K/mm3 Sodium (136-145) mEq/L Potassium (3.5-5.1) mEq/L Chloride (98-107) mEq/L Carbon Dioxide (21-32) mEq/L Anion Gap (5-15) BUN (7-18) mg/dL Creatinine (0.55-1.02) mg/dL Est Cr Clr Drug Dosing mL/min Estimated GFR (MDRD) (>60) mL/min BUN/Creatinine Ratio (14-18) Glucose (74-106) mg/dL Calcium (8.5-10.1) mg/dL Total Bilirubin (0.2-1.0) mg/dL AST (15-37) U/L ALT (14-59) U/L Alkaline Phosphatase (46-116) U/L Total Protein (6.4-8.2) g/dl Albumin (3.4-5.0) g/dl Globulin gm/dL Albumin/Globulin Ratio (1-2) TSH 3rd Generation (0.358-3.74) uIU/mL HCG, Qual (NEGATIVE) Urine Opiates Screen Negative (NEGATIVE) Ur Buprenorphine Scrn Negative (NEGATIVE) Ur Oxycodone Screen Negative (NEGATIVE) Urine Methadone Screen Negative (NEGATIVE) Ur Propoxyphene Screen Negative (NEGATIVE) Ur Barbiturates Screen Negative (NEGATIVE) Ur Tricyclics Screen Negative (NEGATIVE) Ur Phencyclidine Scrn Negative (NEGATIVE) Ur Amphetamine Screen Negative (NEGATIVE) U Methamphetamines Scrn Negative (NEGATIVE) U Benzodiazepines Scrn Negative (NEGATIVE) U Cocaine Metab Screen Negative (NEGATIVE) U Marijuana (THC) Screen Negative (NEGATIVE) Ethyl Alcohol (0.00) gm% Medications Generic Name Dose Route Start Last Admin Trade Name Freq PRN Reason Stop Dose Admin Sodium Chloride 10 ml 11/06/16 20:44 Saline Flush FLUSH ASDIRECTED PRN Keep Vein Open Discontinued Medications Generic Name Dose Route Start Last Admin Trade Name Modesta PRN Reason Stop Dose Admin Acetaminophen 975 mg 11/06/16 20:48 11/06/16 20:55 Tylenol PO 11/06/16 20:49 975 mg NOW ONE Administration Clonazepam 1 mg 11/06/16 20:51 11/06/16 21:08 Klonopin PO 11/06/16 20:52 1 mg ONETIME ONE Administration Sodium Chloride 1,000 mls @ 1,000 mls/hr 11/06/16 20:43 Normal Saline IV 11/06/16 21:42 ONETIME ONE Quetiapine Fumarate 50 mg 11/06/16 20:49 11/06/16 21:07 Seroquel PO 11/06/16 20:50 50 mg ONETIME ONE Administration Trazodone HCl 200 mg 11/06/16 20:49 11/06/16 21:07 Trazodone PO 11/06/16 20:50 200 mg ONETIME ONE Administration Re-Assessment/Re-Exam: I ordered her home meds here except her clonidine. Her blood pressure is on the low side in the 80 systolic. She says that is nearly normal for her. Her CBC looks good. Her UDS is negative. Her blood alcohol is 0.16. Her UDS is negative. I called [facility] Crisis line to let them know what happened. They will be awaiting her call tomorrow. I will increase her clonazepam to 1mg TID. Departure - Departure Time of Disposition: 21:45 Disposition: Home, Self-Care 01 Condition: Good Clinical Impression: Alcohol intoxication Qualifiers: Complication of substance-induced condition: uncomplicated Qualified Code(s): F10.920 - Alcohol use, unspecified with intoxication, uncomplicated - Discharge Information Prescriptions: ClonazePAM [KlonoPIN] 2 mg PO BID #20 tablet Referrals: PCP,Not In Area [Primary Care Provider] - Lamar Alvarez MD [Ordering Only Provider] - Additional Instructions: Take the clonazepam 2 mg twice per day. Call [facility] tomorrow. Follow up with your doctor. - My Orders Last 24 Hours: My Active Orders 11/06/16 19:52 Cardiac Monitoring [RC] . DIRECTED 11/06/16 20:44 Peripheral IV Care [RC] . DIRECTED Sodium Chloride 0.9% [Saline Flush] 10 ml FLUSH ASDIRECTED PRN - Assessment/Plan Last 24 Hours: My Active Orders 11/06/16 19:52 Cardiac Monitoring [RC] . DIRECTED 11/06/16 20:44 Peripheral IV Care [RC] . DIRECTED Sodium Chloride 0.9% [Saline Flush] 10 ml FLUSH ASDIRECTED PRN
== END 2016-11-06 21:54 | disposition home or self-care (01) ==
LOC: JD.ED 19:24
DX: F10.920 Alcohol use, unspecified with intoxication, uncomplicated (principal); F17.210 Nicotine dependence, cigarettes, uncomplicated; I10 Essential (primary) hypertension; Z98.890 Other specified postprocedural states; Z90.49 Acquired absence of other specified parts of digestive tract; Z88.2 Allergy status to sulfonamides; Z90.710 Acquired absence of both cervix and uterus; Z88.1 Allergy status to other antibiotic agents; Z79.899 Other long term (current) drug therapy
CPT/HCPCS: 36415; 80053; 80306; 84443; 84703; 85025; 99284; A9270; G0480; 99283

== ENCOUNTER 2017-08-28 06:30 | Emergency (ER) | payer MEDICARE, MEDICAID ==
[2017-08-28] MEDS ORDERED: Sodium Chloride 0.9% 1,000 ML ONE ×2 (20:11→20:46)
[2017-08-28] MEDS ORDERED: Ondansetron 4 MG/2 ML SDV ONE (20:11)
--- NOTE | 2017-08-30 20:23 | EDM.PDOC ---
ED HPI GENERAL MEDICAL PROBLEM - General Stated Complaint: VOMITING SINCE MONDAY Time Seen by Provider: 08/28/17 19:43 Source of Information: Reports: Patient History Limitations: Reports: No Limitations - History of Present Illness INITIAL COMMENTS - FREE TEXT/NARRATIVE: The patient was seen during computer downtime. Handwritten notes were taken at the time - this record is made from those notes. The patient states that she has a long history of polysubstance abuse, including opioids, heroin, benzodiazepines, methamphetamine, and alcohol. She states that he was started on Prozac and Suboxone about one month ago, per [facility], in [place]. She receives a prescription every other , most recently on 08/17/2017. The patient states that she developed nausea and emesis on 08/22/2017. She became diaphoretic. He has had muscle pain, but no diarrhea, and no fever. She denies chest pain or cough. No urinary symptoms. She states that she has been feeling dizzy when she stands, for the past 4 days. None of the patient's close contacts are similarly ill. She does not recall eating any spoiled food. No recent antibiotics. No recent travel. No prior similar symptoms. The patient denies trying any home remedies or [id number] medicines. The patient does not have a PCP. - Related Data Allergies Allergy/AdvReac Type Severity Reaction Status Date / Time Sulfa (Sulfonamide Allergy Rash Verified 11/06/16 19:40 Antibiotics) sulfamethoxazole Allergy Hives Verified 11/06/16 19:40 [From Bactrim] trimethoprim [From Bactrim] Allergy Hives Verified 11/06/16 19:40 Home Meds: Home Meds FLUoxetine [PROzac] 60 mg PO DAILY 02/21/15 [History] QUEtiapine [SEROquel XR] 100 mg PO BEDTIME 02/21/15 [History] cloNIDine [Catapres] 0.1 mg PO BID 08/12/16 [History] ClonazePAM [KlonoPIN] 1 mg PO TID 09/02/16 [History] ClonazePAM [KlonoPIN] 2 mg PO BID #20 tablet 11/06/16 [Rx] Varenicline Tartrate [Chantix] 1 mg PO BID 11/06/16 [History] traZODone HCl [Trazodone HCl] 200 mg PO DAILY 11/06/16 [History] Past Medical History Musculoskeletal History: Reports: Back Pain, Chronic (DDD) Psychiatric History: Reports: Addiction, Anxiety, Depression, Suicide Attempt, Suicidal Ideation - Past Surgical History HEENT Surgical History: Reports: Oral Surgery ([place] teeth extraction), Tonsillectomy GI Surgical History: Reports: Cholecystectomy Female Surgical History: Reports: Hysterectomy Social & Family History - Family History Family Medical History: Noncontributory - Tobacco Use Smoking Status *Q: Current Every Day Smoker Years of Tobacco use: 22 Packs/Tins Daily: 0.5 Packs/Tins Daily Comment: Down from 2 ppd Second Hand Smoke Exposure: No - Caffeine Use Caffeine Use: Reports: Coffee - Alcohol Use Alcohol Use History: Yes Days Per Week of Alcohol Use: 3 Number of Drinks Per Day: 4 Total Drinks Per Week: 12 - Recreational Drug Use Recreational Drug Use: Yes Drug Use in Last 12 Months: Yes Recreational Drug Type: Reports: Benzodiazepines, Heroin, Methamphetamine, Other (see below) (Opioids) Other Recreational Drug Type: Last used Dec 2016 - Living Situation & Occupation Living situation: Reports: , Other (with ex-) Occupation: Unemployed ED ROS GENERAL - Review of Systems Review Of Systems: ROS reveals no pertinent complaints other than HPI. ED EXAM, GI/ABD - Physical Exam Exam: See Below Exam Limited By: No Limitations General Appearance: Alert, WD/WN, No Apparent Distress Eyes: Bilateral: Normal Appearance, EOMI Ears: Normal External Exam, Hearing Grossly Normal Nose: Normal Inspection, No Blood Throat/Mouth: Normal Inspection, Normal Lips, Normal Voice, No Airway Compromise Head: Atraumatic, Normocephalic Neck: Normal Inspection, Full Range of Motion Respiratory/Chest: No Respiratory Distress, Lungs Clear, Normal Breath Sounds, No Accessory Muscle Use Cardiovascular: Normal Peripheral Pulses, Regular Rate, Rhythm, No Edema, No Gallop, No JVD, No Murmur, No Rub GI/Abdominal Exam: Normal Bowel Sounds, Soft, Non-Tender, No Organomegaly, No Distention, No Abnormal Bruit, No Mass (Female) Exam: Deferred Rectal (Female) Exam: Deferred Back Exam: Normal Inspection, Full Range of Motion, NT Extremities: Normal Inspection, Normal Range of Motion, No Pedal Edema, Normal Capillary Refill Neurological: Alert, Oriented, Normal Cognition, No Motor/Sensory Deficits Psychiatric: Normal Affect Skin Exam: Warm, Dry, Intact, Normal Color, No Rash Course - Orders/Labs/Meds Labs: Laboratory Tests 08/28/17 08/28/17 08/28/17 Range/Units 20:00 20:00 20:00 WBC 8.37 (3.98-10.04) K/mm3 RBC 4.33 (3.98-5.22) M/mm3 Hgb 13.8 (11.2-15.7) gm/L Hct 42.3 (34.1-44.9) % MCV 97.7 H (79.4-94.8) fl MCH 31.9 (25.6-32.2) pg MCHC 32.6 (32.2-35.5) g/dl RDW Std Deviation 46.9 H (36.4-46.3) fL Plt Count 337 (182-369) K/mm3 MPV 9.9 (9.4-12.3) fl Neutrophils % (Manual) 63 H (40-60) % Band Neutrophils % 0 (0-10) % Lymphocytes % (Manual) 31 (20-40) % Atypical Lymphs % 3 % Monocytes % (Manual) 2 (2-10) % Eosinophils % (Manual) 1 (0.7-5.8) % Basophils % (Manual) 0 L (0.1-1.2) Platelet Estimate Adequate RBC Morph Comment Normal Sodium 137 (136-145) mEq/L Potassium 3.7 (3.5-5.1) mEq/L Chloride 103 (98-107) mEq/L Carbon Dioxide 25 (21-32) mEq/L Anion Gap 12.7 (5-15) BUN 16 (7-18) mg/dL Creatinine 0.8 (0.55-1.02) mg/dL Est Cr Clr Drug Dosing TNP Estimated GFR (MDRD) > 60 (>60) mL/min BUN/Creatinine Ratio 20.0 H (14-18) Glucose 112 H (74-106) mg/dL Calcium 9.1 (8.5-10.1) mg/dL Magnesium 1.8 (1.8-2.4) mg/dl Total Bilirubin 0.2 (0.2-1.0) mg/dL AST 23 (15-37) U/L ALT 34 (14-59) U/L Alkaline Phosphatase 58 (46-116) U/L Total Protein 6.8 (6.4-8.2) g/dl Albumin 3.4 (3.4-5.0) g/dl Globulin 3.4 gm/dL Albumin/Globulin Ratio 1.0 (1-2) Urine Color Yellow (Yellow) Urine Appearance Slt cloudy H (Clear) Urine pH 7.0 (5.0-8.0) Ur Specific [place] 1.025 (1.005-1.030) Urine Protein Negative (Negative) Urine Glucose (UA) Negative (Negative) Urine Ketones Negative (Negative) Urine Occult Blood Negative (Negative) Urine Nitrite Negative (Negative) Urine Bilirubin Negative (Negative) Urine Urobilinogen 0.2 (0.2-1.0) Ur Leukocyte Esterase Negative (Negative) Urine RBC 0-5 (0-5) /hpf Urine WBC 0-5 (0-5) /hpf Ur Epithelial Cells 0-5 (0-5) /hpf Urine Bacteria Few (FEW) /hpf Urine Mucus Moderate H (FEW) /hpf Meds: Medications Discontinued Medications Generic Name Dose Route Start Last Admin Trade Name Freq PRN Reason Stop Dose Admin Sodium Chloride Confirm 08/28/17 20:11 Normal Saline Administered 08/28/17 20:12 Dose 1,000 mls @ as directed .ROUTE .STK-MED ONE Sodium Chloride Confirm 08/28/17 20:46 Normal Saline Administered 08/28/17 20:47 Dose 1,000 mls @ as directed .ROUTE .STK-MED ONE Ondansetron HCl Confirm 08/28/17 20:11 Zofran Administered 08/28/17 20:12 Dose 4 mg .ROUTE .STK-MED ONE - Re-Assessments/Exams Free Text/Narrative Re-Assessment/Exam: Initial orthostatics at 20:15 were positive. Following 1 L NS, repeat orthostatics at 20:40 were still positive. Following a second liter of NS, repeat orthostatics at 21:14 were negative. CBC, CMP, magnesium level, and urinalysis were all unremarkable. The patient was concerned that her symptoms were related to the Suboxone, however, her symptoms did not develop until the patient had only been on Suboxone for about 2 weeks. I suspect that the patient is suffering from viral gastroenteritis, no different from anyone else. She was discharged home with a prescription for Zofran ODT. She was referred to Dr. Danelle Smith as a PCP. Departure - Departure Time of Disposition: 21:30 Disposition: Home, Self-Care 01 Condition: Good Clinical Impression: Gastroenteritis - Discharge Information Referrals: PCP,None [Primary Care Provider] - Danelle Smith MD [Physician] - Additional Instructions: You were seen in the emergency room for nausea and vomiting for a week Workup in the ER included blood work, a urinalysis, and positional blood pressure checks. All of your tests were normal, however, your blood pressure dropped significantly between lying and standing, indicating that you were intravascularly dry. You received 2 L of IV fluid and antinausea medicine, and your numbers normalized. He has been prescribed the anti-nausea medicine Zofran. Dissolve 1 tablet on your tongue up to every 8 hours, as needed for nausea/vomiting. Eat a bland diet for the next few days, until you are feeling all better. Follow-up with Dr. Danelle Smith as a PCP. If any other problems, please do not hesitate to return to the ER.
== END 2017-08-28 21:39 | disposition home or self-care (01) ==
LOC: JD.ED 06:30
DX: K52.9 Noninfective gastroenteritis and colitis, unspecified (principal); F41.9 Anxiety disorder, unspecified; F32.9 Major depressive disorder, single episode, unspecified; Z90.49 Acquired absence of other specified parts of digestive tract; Z90.710 Acquired absence of both cervix and uterus; F17.210 Nicotine dependence, cigarettes, uncomplicated; Z88.2 Allergy status to sulfonamides; Z88.1 Allergy status to other antibiotic agents; Z79.899 Other long term (current) drug therapy
CPT/HCPCS: 36415; 80053; 81001; 83735; 85025; 96361; 96374; 99284; J2405; J7040

== ENCOUNTER 2021-10-23 18:41 | Emergency (ER) | payer MEDICAID, MEDICARE | END 2021-10-23 19:34 | disposition left against medical advice (07) | LOC: JD.ED 18:41 | DX: Z53.21 Procedure and treatment not carried out due to patient leaving prior to being seen by health care provider (principal) ==

== ENCOUNTER 2022-06-28 17:03 | Emergency (ER) | payer MEDICARE ==
[2022-06-28 17:24] VITALS: BP 149/91; PULSE 69
[2022-06-28] MEDS ORDERED: Cyclobenzaprine 10 MG Tab PO ONE (17:54)
[2022-06-28] MEDS ORDERED: HYDROmorphone 0.5 MG/0.5 ML Syringe IM ONE (17:54)
== END 2022-06-28 19:20 | disposition home or self-care (01) ==
LOC: JD.ED 17:03
DX: M43.6 Torticollis (principal); I10 Essential (primary) hypertension; Z88.2 Allergy status to sulfonamides; Z79.899 Other long term (current) drug therapy
CPT/HCPCS: 72040; 96372; 99283; A9270; J1170; 99284

== ENCOUNTER 2025-01-02 14:21 | Emergency (ER) | payer MEDICARE ==
[2025-01-02] MEDS: Ketorolac 30 MG/ML SDV IVPUSH ONE (15:31)
[2025-01-02] MEDS: Acetaminophen/oxyCODONE 325-5 MG Tab PO ONE (16:41)
[2025-01-02 21:07] VITALS: BP 119/80; PULSE 64
== END 2025-01-02 18:00 | disposition home or self-care (01) ==
LOC: JD.ED 14:21
DX: S82.141A Displaced bicondylar fracture of right tibia, initial encounter for closed fracture (principal); I10 Essential (primary) hypertension; Z79.899 Other long term (current) drug therapy; Z88.2 Allergy status to sulfonamides; Z90.49 Acquired absence of other specified parts of digestive tract; Z90.710 Acquired absence of both cervix and uterus; W10.8XXA Fall (on) (from) other stairs and steps, initial encounter
CPT/HCPCS: 73562; 73700; 96374; 96375; 99284; A9270; J1885; J1171